=== PATIENT | male | born 1965 | race Caucasian/White ===

== ENCOUNTER → 2018-04-07 07:33 | Outpatient (CLI) | payer OTHER, SELFPAY ==
--- NOTE | 2018-04-07 07:46 | US_ITS ---
STUDY: SCROTUM ULTRASOUND REASON FOR EXAM: Male, 52 years old. Left testicular pain and swelling TECHNIQUE: Ultrasound evaluation of the scrotum was performed with color Doppler and static jones-scale imaging. COMPARISON: None. FINDINGS: RIGHT TESTICLE INTRATESTICULAR: There is a normal size of the right testicle. The right testicle measures 5.2 x 3.3 x 2.6 cm. There is a homogenous echotexture. There is normal arterial and normal venous vascularity. There is no demonstrated right testicular mass or cyst. EXTRATESTICULAR: The epididymis is normal in size. The epididymis head measures 0.6 x 1.5 x 1.5 cm. There is normal vascularity of the epididymis. There is no demonstrated epididymal cystic structure. There is a small hydrocele. There is no demonstrated varicocele. There is no demonstrated extratesticular mass or cyst. LEFT TESTICLE INTRATESTICULAR: There is a normal size of the left testicle. The left testicle measures 4.1 x 2.7 x 2.2 cm. There is a homogenous echotexture. There is normal arterial and normal venous vascularity. There is no demonstrated left testicular mass or cyst. EXTRATESTICULAR: The epididymis is normal in size. The epididymis head measures 0.9 x 1.6 x 1.1 cm. There is normal vascularity of the epididymis. There is a well-defined cystic structure within the epididymis, without internal echoes, consistent with an epididymal cyst. There is no demonstrated hydrocele. There is no demonstrated varicocele. There is no demonstrated extratesticular mass or cyst. There is a small amount of left scrotal skin thickening US/Testicular with Arterial Flow IMPRESSION: No evidence of torsion. Small right hydrocele. Simple-appearing left epididymal head cyst. Left-sided scrotal skin thickening Electronically Signed: Dion Kenny DO at 10:11 EST Tel , Service support ,
== END ==
PROVIDERS: Family Provider Family Medicine; PCP Family Medicine; Referring Provider Urology; Visit Provider Urology
DX: N50.819 Testicular pain, unspecified (principal); N50.89 Other specified disorders of the male genital organs
CPT/HCPCS: 76870; 93976

== ENCOUNTER → 2022-11-08 | Outpatient (CLI) | payer OTHER, SELFPAY ==
[2022-11-08 17:30] LABS: PSA,Total- Diagnostic 5.98 ng/mL (0.0-4.0)
== END | disposition home or self-care (01) ==
PROVIDERS: PCP Family Medicine; Referring Provider Urology; Visit Provider Urology
DX: R97.20 Elevated prostate specific antigen [PSA] (principal)
CPT/HCPCS: 36415; 84153

== ENCOUNTER → 2022-11-30 | Outpatient (CLI) | payer OTHER, SELFPAY ==
--- NOTE | 2022-11-30 17:26 | MRI_ITS ---
STUDY: MR PROSTATE GLAND/ PELVIS WITH T WITHOUT CONTRAST REASON FOR EXAM: Male, 56 years old. ELEVATED PSA 6.37 TECHNIQUE: Standardized fat and water weighted pulse sequences were obtained in all 3 orthogonal planes, pre-and post contrast administration. IV 19CC CLARISCAN was administered for the contrast portion of the examination. COMPARISON: None. FINDINGS: Prostate gland volume/size: 3.71 x 3.44 x 4.59 cm. Which is normal in size. Anterior fibromuscular stroma: Normal Peripheral zone: Diffusely heterogeneous and nodular Central zone: Diffusely heterogeneous and nodular Transitional zone: Lobular low signal masslike infiltration is present in the bilateral transitional zones with minimal peripheral enhancement but centrally no enhancement is seen. The mass on the left measures 1.14 cm and is best seen on image 33/40. These areas also demonstrate restricted diffusion, highly suggestive of malignancy. Prostate capsule: Intact Seminal vesicles: Normal Pelvic sidewall lymphadenopathy: No lymphadenopathy is present Bony structures: No lytic or blastic lesions are present Normal urinary bladder. Normal visualized small intestine. Normal visualized colon. There is no pelvic fluid. There is no pelvic mass lesion or lymphadenopathy. Normal visualized pelvic arteries. Normal osseous structures. Normal abdominal wall. MRI/Pelvis W/WO Contrast IMPRESSION: 1. Lobular low signal masslike infiltration is present in the bilateral transitional zones with minimal peripheral enhancement but centrally no enhancement is seen. The mass on the left measures 1.14 cm and is best seen on image 33/40. These areas also demonstrate restricted diffusion, highly suggestive of malignancy. 2. PI-RADS 4: high (clinically significant cancer is likely to be present) Reference information: Normal prostate tissue Benign prostatic hypertrophy cancer/tumor - low signal peripheral , transitional, and central zones malignancy appears as bright on DWI and low signal on ADC map Prostate imaging-reporting and data system (PI-RADS) PI-RADS 1: very low (clinically significant cancer is highly unlikely to be present) PI-RADS 2: low (clinically significant cancer is unlikely to be present) PI-RADS 3: intermediate (the presence of clinically significant cancer is equivocal) PI-RADS 4: high (clinically significant cancer is likely to be present) PI-RADS 5: very high (clinically significant cancer is highly likely to be present) PI-RADS X: component of exam technically inadequate or not performed Prostate malignancy distribution: Peripheral zone: 70-80% Transitional zone: 10-20% Central zone: 5% or less Electronically Signed: Matthew Julien MD at 10:29 EDT ,
== END | disposition home or self-care (01) ==
LOC: MRI 17:10
PROVIDERS: PCP Family Medicine; Referring Provider Urology; Visit Provider Urology
DX: R97.20 Elevated prostate specific antigen [PSA] (principal)
CPT/HCPCS: 72197; A9575

== ENCOUNTER → 2023-01-08 | Outpatient (CLI) | payer OTHER, SELFPAY ==
--- NOTE | 2023-01-08 | PROSBIL_PTH ---
PATIENT: NINI CHURCHILL LOC: [facility] U#:[id number] AGE/SX: 57/M ROOM: RE01/08/[address]: Dr. Navdeep Stauffer MD : 1965 BED: DIS: 01/08/2023 SPEC #: [id number] RECD: 01/08/23 15:00 STATUS: RENATO GARZA #: [id number] TAMERA: 01/08/23 00:[address]: Navdeep Stauffer DEPT: SURGICAL PATHOLOGY RECD BY: Hood Sow ENTERED: 01/09/23 09:55 SP TYPE: PROST BX RICH DR: Dr. Duke Lai MD Tissues: A - PROSTATE RIGHT B - PROSTATE RIGHT C - PROSTATE RIGHT D - PROSTATE LEFT E - PROSTATE LEFT F - PROSTATE LEFT Procedures: PROSTATE BX HEADER OPERATION: Prostate biopsy PRE-OP DIAGNOSIS: Elevated PSA TISSUE SUBMITTED: A - Right apex, B - Right mid, C - Right base, D - Left apex, E - Left mid, F - Left base MICROSCOPIC DIAGNOSIS A. Right prostate, apex, core biopsy: Adenocarcinoma. Delvin grade: 6 (3+3) Cores involved: 2 out of 2 cores Tissue involved: 2% Greatest tumor length: 2.2 millimeters See comment. B. Right prostate, mid, core biopsy: Focal chronic inflammation. C. Right prostate, base, core biopsy: Benign prostatic tissue. D. Left prostate, apex, core biopsy: Adenocarcinoma. [place] grade: 6 (3+3) Cores involved: 2 out of 2 cores Tissue involved: 50% Greatest tumor length: 7 millimeters (discontinuous) See comment. E. Left prostate, mid, core biopsy: Adenocarcinoma. [place] grade: 6 (3+3) Cores involved: 2 out of 2 cores Tissue involved: 1% Greatest tumor length: 1 millimeter See comment. F. Left prostate, base, core biopsy: Adenocarcinoma. [place] grade: 6 (3+3) Cores involved: 2 out of 2 cores Tissue involved: 35% Greatest tumor length: 6.5 millimeters (discontinuous) See comment. AM:eric 01/10/2023 COMMENT A, D-F - Immunohistochemistry ([id number]) supports the above diagnosis. MICROSCOPIC DESCRIPTION Slides are reviewed. GROSS DESCRIPTION A - Received is one container designated prostate, right apex. The specimen consists of two elongated fragments of light swartz-white soft tissue each measuring 1.5 cm in length and 0.1 cm in diameter. The specimen is totally submitted in one cassette. B - Received is one container designated prostate, right mid. The specimen consists of two elongated fragments of light swartz-white soft tissue each measuring 2.0 cm in length and 0.1 cm in diameter. The specimen is totally submitted in one cassette. C - Received is one container designated prostate, right base. The specimen consists of two elongated fragments of light swartz-white soft tissue each measuring 1.5 cm in length and 0.1 cm in diameter. The specimen is totally submitted in one cassette. D - Received is one container designated prostate, left apex. The specimen consists of two elongated fragments of light swartz-white soft tissue each measuring 1.5 cm in length and 0.1 cm in diameter. The specimen is totally submitted in one cassette. E - Received is one container designated prostate, left mid. The specimen consists of two elongated fragments of light swartz-white soft tissue each measuring 1.5 cm in length and 0.1 cm in diameter. The specimen is totally submitted in one cassette. F - Received is one container designated prostate, left base. The specimen consists of two elongated fragments of light swartz-white soft tissue each measuring 1.5 cm in length and 0.1 cm in diameter. The specimen is totally submitted in one cassette. / AM:eric 01/09/2023 TC:0 [facility]: [id number] x6
--- NOTE | 2023-01-08 | IMM_PTH ---
PATIENT: NINI CHURCHILL LOC: [facility] U#:[id number] AGE/SX: 57/M ROOM: RE01/08/[address]: Dr. Navdeep Stauffer MD : 1965 BED: DIS: 01/08/2023 SPEC #: [id number] RECD: 01/10/23 14:12 STATUS: RENATO REQ #: [id number] TAMERA: 01/08/23 00:[address]: Navdeep Stauffer DEPT: IMMUNOHISTOCHEMISTRY RECD BY: Dee Neal ENTERED: 01/10/23 14:14 SP TYPE: IMMUNO OTHR DR: Dr. Duke Lai MD Tissues: A - PROSTATE RIGHT D - PROSTATE LEFT E - PROSTATE LEFT F - PROSTATE LEFT Procedures: 34BE12 (add) P40 (add) 34BE12 (initial) PHYSICIAN & INSTITUTION [place] [id number] SPECIMEN INFORMATION: Tissue Source: A - Right apex, D - Left apex, E - Left mid, F - Left base Clinical Info: Elevated PSA Specimen Number: [id number] A, D-F CPT code: 41405, 13577 x7 METHODOLOGY: Deparaffinized sections of prefer/formalin-fixed tissue or PAP/DQ stained slides are incubated with monoclonal/polyclonal antibodies/oligonucleotide probes. Localization is made via biotin free immunoperoxidase method. Appropriate controls are performed and reacted as expected. Results on target cell population are indicated in the following table: RESULTS: ANTIBODY / CLONE RESULT Block A P40 (BC28) negative 34BE12 (34BE12) negative Block D P40 (BC28) negative 34BE12 (34BE12) negative Block E P40 (BC28) negative 34BE12 (34BE12) negative Block F P40 (BC28) negative 34BE12 (34BE12) negative These tests were developed and their performance characteristics determined by [facility]. They may not have been cleared or approved by the [place]. Food and Drug Administration. The FDA has determined that such clearance or approval is not necessary. The above immunohistochemical/dualISH markers are ordered and reviewed by the Pathologist. INTERPRETATION: A. Right prostate, apex, core biopsy: Adenocarcinoma. D. Left prostate, apex, core biopsy: Adenocarcinoma. E. Left prostate, mid, core biopsy: Adenocarcinoma. F. Left prostate, base, core biopsy: Adenocarcinoma. AM:eric 01/11/2023
== END | disposition home or self-care (01) ==
PROVIDERS: PCP Family Medicine; Referring Provider Urology; Visit Provider Urology
DX: R97.20 Elevated prostate specific antigen [PSA] (principal)
CPT/HCPCS: 88305; 88341; 88342; G0416